=== PATIENT | male | born 1935 | race African-American/Black ===

== ENCOUNTER 2017-01-16 07:17 | Observation (INO) ==
[2017-01-16] MEDS ORDERED: NITROGLYCERIN 2% OINT 1 INCH/GM PACK TOP STA (07:43)
[2017-01-16] MEDS ORDERED: ASPIRIN 325 MG TABLET PO STA (07:43)
[2017-01-16] MEDS ORDERED: ENOXAPARIN 100 MG/ML SYRINGE SUBCUT STA (07:43)
--- NOTE | 2017-01-16 07:46 | Emergency Department Note ---
IBenton Meredith, am scribing for, and in the presence of, Sae Meneses MD 07: 43. Zaira Morales James D, MD, personally performed the services described in this documentation, ascribed by Charlotte Bhardwaj in my presence, and it is both accurate and complete 744 . Arrival - Arrival Chief Complaint: Dizziness Stated Complaint: chest pain,dizzy, weak in legs ED Nursing Triage Note: pt ambulatory to triage with c/o having dizziness and chest pain. 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 pt states when he gets up and is doing stuff around the house he gets dizzy feels like he is going to pass out with chest pain and sob. pt denies any syncopal episodes. pt denies any chest pain at this time. Mode of Arrival: Ambulatory Limitations: No Limitations Source: Patient, Old Records Reviewed, RN Notes Reviewed Time Seen by Provider: 01/16/17 07:38 - History of Present Illness HPI Narrative: Pt is an 81 y/o black male reporting to the ED with c/o intermittent episodes of lightheadedness for the past month. He will get up to do something, become very lightheaded and feels like he is going to pass out. He confirms associated chest pain, shortness of breath, nausea, vomiting, and diaphoresis. He has no pain at this time. Pt denies any blood in his bowel movements. Pt has a history of CAD, HTN, [place], HLD, and prostate cancer. Onset (ago): month(s) Consistency: intermittent Allergies/Adverse Reactions: Allergies Allergy/AdvReac Type Severity Reaction Status Date / Time No Known Allergies Allergy Verified 11/05/15 09:28 Home Medications: Home Medications Medication Instructions Recorded Confirmed Type Amiodarone HCl [Amiodarone HCl] 1 tablet PO BID 04/05/16 01/16/17 History Aspirin [Ecotrin] 81 mg PO DAILY 04/05/16 01/16/17 History Carvedilol [Carvedilol] 1 tablet PO BID 04/05/16 01/16/17 History Furosemide [Furosemide] 1 tablet PO DAILY 04/05/16 01/16/17 History Losartan [Cozaar] 50 mg PO DAILY 04/05/16 01/16/17 History Simvastatin [Simvastatin] 1 tablet PO DAILY 04/05/16 01/16/17 History Review of System - Review of System 12 point system: reviewed and no additional remarkable complaints except as stated - Review of System Constitutional: Present: as per HPI, diaphoresis, other (lightheaded) Respiratory: Present: as per HPI, other (SOB) Cardiovascular: Present: as per HPI, chest pain, syncope (near-syncope) Gastrointestinal: Present: as per HPI, nausea, vomiting. Absent: melena, hematochezia Medical,Surgical,& Family Hx - Medical History Cardio: History of: CAD, Hypertension, [place] Endocrine: History of: Dyslipidemia Genitourinary: History of: Prostate Problems (Prostate CA Radiation /Hormone [place]) - Surgical History Cardiac Surgeries: Sugical HX of: Cardiac Surgery (CABG 2003) - Family History Family History: Denies;: Additional Family History - Social History Smoking Status: Never smoker Frequency of Alcohol Use: None Type of Drug Use: None Exam Physical Examination: GENERAL: This is a well-nourished, well-developed black male in no apparent distress. VITAL SIGNS: Temperature: 97, Pulse: 53, Respirations: 17, Blood pressure: 147/ 56, O2 Saturation: 98 HEENT: Head is normocephalic and atraumatic. Pupils are equally round and reactive to light. Extraocular movement are intact. Oropharynx is benign with moist mucous membranes. NECK: Neck is soft and supple without tenderness. There are no masses. There is no lymphadenopathy. LUNGS: Lungs are clear to auscultation bilaterally. Chest rises symmetrically. There is no chest wall tenderness. CV: Heart is regular rate and rhythm without murmurs, rubs, or gallops. ABDOMEN: Abdomen is soft, non-tender to palpation. There are no abnormal masses palpated. There is no organomegaly. Bowel sounds are present and active. SKIN: Skin is warm and dry. No rash. EXTREMITIES: Patient has full range of motion without tenderness. There is no pedal edema. NEUROLOGIC: Awake, alert, and oriented x4. Cranial nerves II through XII are grossly intact. There are no motorsensory deficits. PSYCHIATRIC: Normal affect. Normal mood. Vital Signs: Vital Signs Temperature 97.0 F L 01/16/17 07:27 Pulse Rate 54 L 01/16/17 07:27 Respiratory Rate 01/16/17 07:27 Blood Pressure 147/56 01/16/17 07:27 O2 Sat by Pulse Oximetry 98 01/16/17 07:27 Course - Consultations Consultation #1: Discussed with Dr. Jaeger. Patient will be admitted to his service. Initial orders written for him. Time: 08:50 Results - Labs CBC & BMP: 01/16/17 07:53 01/16/17 07:53 Lab Results: I have reviewed the patients labs Labs: Laboratory Tests 01/16/17 07:53 WBC 2.6 L RBC 3.24 L Hgb 8.3 L Hct 27.6 L MCV 85.2 L MCH 26 L MCHC 30.1 L Plt Count 182 Lymph % (Auto) 20.5 L Baso % (Auto) 1.1 H Lymph # (Auto) 0.5 L Laboratory Tests 01/16/17 07:53 Urine pH 7.0 Ur Specific [place] 1.003 Urine Urobilinogen < 2.0 H Urine RBC <1 Laboratory Tests 01/16/17 07:53 Urine Opiates Screen Negative Ur Barbiturates Screen Negative Ur Phencyclidine Scrn Negative U Amphetamine/Methamph Negative U Benzodiazepines Scrn Negative U Cocaine Metab Screen Negative U Cannabinoids Screen Negative Laboratory Tests 01/16/17 07:53 INR 1.0 PT Patient/Control Mix 11.1 Circ Anticoag PTT 24.2 Laboratory Tests 01/16/17 07:53 Troponin I 0.054 H - EKG EKG results: interpreted by ERMD - Impressions EKG: Sinus bradycardia with occasional PVCs, left atrial enlargement, rate 55, right bundle branch block, possible anterolateral ischemia with T-wave inversion. EKG #2: Sinus bradycardia with a rate of 45, incomplete right bundle branch block, anterolateral and inferior ST segment depression and T-wave inversion consistent with ischemia. - Diagnostic Findings Procedure: Chest x-ray: image reviewed by me, report reviewed by me ( Cardiomegaly and suspected mild CHF. ) Disposition Clinical Impression: Chest pain, Lightheadedness, Essential hypertension, Elevated troponin, Anemia Case discussed with: patient Disposition: Still a Patient Condition: Guarded Time of Disposition: 08:50
[2017-01-16] MEDS ORDERED: ENOXAPARIN 100 MG/ML SYRINGE SUBCUT ONE (07:59)
[2017-01-16] MEDS ORDERED: NITROGLYCERIN 2% OINT 1 INCH/GM PACK TOP ONE (08:00)
[2017-01-16] MEDS ORDERED: ASPIRIN 325 MG TABLET ONE (08:00)
[2017-01-16 08:04] LABS: Basophils % 1.1 % (0.0-0.8); Eosinophils # 0.1 10*3/uL (0.0-0.87); Eosinophils % 1.9 % (0.00-10.9); Hematocrit 27.6 VOL% (42.0-52.0); Hemoglobin 8.3 GM/DL (14.0-18.0); Immature Granulocytes % 0.4 %; Immature Granulocytes Absolute 0.01 #; Lymphocytes # 0.5 10*3/uL (1.4-4.0); Lymphocytes % 20.5 % (21.2-54.2); Mean Corpuscular HGB Conc 30.1 GM/DL (32-36); Mean Corpuscular Hemoglobin 26 PG (27-34); Mean Corpuscular Volume 85.2 FL (87-102); Monocytes # 0.2 10*3/uL (0.11-0.8); Monocytes % 9.1 % (1.7-12.7); Neutrophils # 1.8 10*3/uL (1.4-7.4); Platelet Count 182 T/CUMM (130-400); Red Blood Count 3.24 MC/CUMM (3.8-5.5); Red Cell Distribution Width 15.9 % (9.3-17.3); White Blood Count 2.6 T/CUMM (4-12)
[2017-01-16 08:05] LABS: Apearance,Urine CLEAR (Clear); Bilirubin,Urine Negative (Negative); Blood, Urine Negative (Negative); Glucose,Urine (UA) Negative (Negative); Ketones,Urine Negative (Negative); Nitrite,Urine Negative (Negative); Protein,Urine Negative; RBC,Urine <1 /HPF (0-4); Urine Color Colorless (Yellow); Urine Specific Gravity 1.003 (1.001-1.035); Urine Urobilinogen < 2.0 EU/DL (0.2-1.0)
[2017-01-16 08:12] LABS: Barbiturates Screen,Urine Negative (Negative); Benzodiazepines Screen,Urine Negative (Negative); Cannabinoid Screen,Urine Negative (Negative); Opiate Screen,Urine Negative (Negative); Phencyclidine Screen,Urine Negative (Negative)
[2017-01-16 08:13] LABS: PT Patient Result 11.1 SECS; Partial Thromboplastin Time 24.2 SECS (0-40)
--- NOTE | 2017-01-16 08:23 | XRay Report ---
History: Chest pain Date: 01/16/2017 at 8:09 AM Study: Chest x-ray PA and lateral Comparison exam: Chest x-ray August 09, 2014 from outside institution There is cardiomegaly. The pulmonary vasculature is slightly prominent. There is mild azygous vein distention. There is no mediastinal mass. The patient is status post prior median sternotomy. There is shallow inspiration with some bronchovascular crowding in the lung bases. There is no lola pneumonia. Shallow inspiration makes it difficult to exclude some early interstitial edema. There is no significant pleural effusion layering in the posterior costophrenic angles. There is mild thoracic spondylosis. There is an old healed mid shaft fracture of the right clavicle Impression: Cardiomegaly and suspected mild CHF PROCEDURE INTERPRETED AT [facility] DEPARTMENT OF RADIOLOGY Final Report Signed by: Dr. Jacque Hodge
[2017-01-16 08:36] LABS: Alanine Aminotransferase 45 U/L (16-61); Albumin 3.7 G/DL (3.4-5.0); Alkaline Phosphatase 71 U/L (45-117); Aspartate Amino Transferase 51 U/L (0-37); Bilirubin,Total < 0.39 MG/DL (0.2-1.0); Blood Urea Nitrogen 17 MG/DL (7-18); Calcium 8.7 MG/DL (8.5-10.1); Glucose 106 MG/DL (74-106); Osmolality,Calculated 291.6 MOS/KG (273-304); Potassium 3.8 MMOL/L (3.5-5.1); Sodium 146 MMOL/L (136-145); Total Protein 6.7 G/DL (6.4-8.3)
[2017-01-16 09:15] LABS: % Iron Saturation 5.5 % (18-50)
--- NOTE | 2017-01-16 09:26 | Hospitalist History & Physical ---
History of Present Illness History of present illness: Mr. Stokes is a 81 year old male Home Medications Medication Instructions Recorded Confirmed Type Amiodarone HCl [Amiodarone HCl] 1 tablet PO BID 04/05/16 01/16/17 History Aspirin [Ecotrin] 81 mg PO DAILY 04/05/16 01/16/17 History Carvedilol [Carvedilol] 1 tablet PO BID 04/05/16 01/16/17 History Furosemide [Furosemide] 1 tablet PO DAILY 04/05/16 01/16/17 History Losartan [Cozaar] 50 mg PO DAILY 04/05/16 01/16/17 History Simvastatin [Simvastatin] 1 tablet PO DAILY 04/05/16 01/16/17 History Allergies Allergy/AdvReac Type Severity Reaction Status Date / Time No Known Allergies Allergy Verified 11/05/15 09:28 Medical,Surgical,& Family Hx - Medical History Cardio: History of: CAD, Hypertension, [place] Endocrine: History of: Dyslipidemia Genitourinary: History of: Prostate Problems (Prostate CA Radiation /Hormone [place]) - Surgical History Cardiac Surgeries: Sugical HX of: Cardiac Surgery (CABG 2003) - Family History Family History: Denies;: Additional Family History - Social History Smoking Status: Never smoker Frequency of Alcohol Use: None Type of Drug Use: None Exam - Constitutional Vitals: Period Temp Pulse Resp BP Sys/Franco Pulse Ox Last 24 Hr 97.0 F-97.0 F 53-54 - 147-147/56-56 98 Results - Labs CBC & BMP: 01/16/17 07:53 01/16/17 07:53
[2017-01-16 10:05] LABS: Folate 10.3 NG/ML (5.4-24.0)
--- NOTE | 2017-01-16 11:01 | EKG Report ---
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
[2017-01-16] MEDS ORDERED: ONDANSETRON 4 MG/2 ML VIAL IV PRN (13:28)
[2017-01-16] MEDS ORDERED: ACETAMINOPHEN 325 MG TABLET PO PRN (13:28)
[2017-01-16] MEDS ORDERED: SODIUM CHLORIDE 0.9% 1,000 ML IV SCH (13:28)
[2017-01-16] MEDS ORDERED: PNEUMOCOCCAL VACCINE (13 VALENT) 0.5 ML SYRINGE IM ONE (13:55)
--- NOTE | 2017-01-16 13:55 | EKG Report ---
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
[2017-01-16] MEDS: ENOXAPARIN 40 MG/0.4 ML SYRINGE SUBCUT SCH (15:13)
[2017-01-16] MEDS ORDERED: NITROGLYCERIN SL 0.4 MG TABLET SL PRN (15:49)
--- NOTE | 2017-01-16 15:55 | Family Practice History&Phys ---
Assessment and Plan (1) Ischemic cardiomyopathy Status: Acute Assessment and plan: 01/16/2017: Chest x-ray showed mild evidence of congestive heart failure. 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 Alex Craft. I will ask him to see him as well. Patient's troponin is very slightly elevated which could be related to his cardiomyopathy. Current Visit: Yes History of Present Illness Chief complaint: Chest pain History of present illness: Mr. Stokes is a 81 year old male Patient's 81-year-old black male presents emergency room day of admission with substernal chest pain. Patient states is blowing off and on for the last 3 or 4 days and seemed been getting a bit worse with each episode. Patient states the pain was a dull ache in the right chest and heard up into his neck. He tells me this pain is similar to that he experienced before his bypass surgery in 2003. He denies any associated nausea, vomiting or diaphoresis. He did feel a bit short of breath. Patient states he noticed it again today when he was bent over and doing something to his truck. Patient's states that these had increasing dyspnea with exertion of S1 going on for months. He did have a history of another left heart catheterization in 2013 that showed widely patent grafts and good runoff in the pilot [place] arteries. Patient states he is pain -free at present. He does have a history of ischemic cardiomyopathy with EF 25% . Home Medications Medication Instructions Recorded Confirmed Type Amiodarone HCl [Amiodarone HCl] 1 tablet PO BID 04/05/16 01/16/17 History Aspirin [Ecotrin] 81 mg PO DAILY 04/05/16 01/16/17 History Carvedilol [Carvedilol] 1 tablet PO BID 04/05/16 01/16/17 History Furosemide [Furosemide] 1 tablet PO DAILY 04/05/16 01/16/17 History Losartan [Cozaar] 50 mg PO DAILY 04/05/16 01/16/17 History Simvastatin [Simvastatin] 1 tablet PO DAILY 04/05/16 01/16/17 History Allergies Allergy/AdvReac Type Severity Reaction Status Date / Time No Known Allergies Allergy Verified 11/05/15 09:28 - Constitutional Constitutional: Present: weakness. Absent: chills, fever(s) - EENT Eyes: Absent: blurry vision, loss of vision Ears: Absent: decreased hearing, ear pain Nose, mouth and throat: Absent: dysphagia, nasal congestion, sinus pressure, sore throat, throat swelling - Cardiovascular Cardiovascular: Present: chest pain at rest, dyspnea on exertion. Absent: orthopnea, palpitations, PND - Respiratory Respiratory: Present: dyspnea on exertion. Absent: cough, wheezing - Gastrointestinal Gastrointestinal: Absent: abdominal pain, diarrhea, dyspepsia, dysphagia, hematochezia, melena, nausea, vomiting - Genitourinary Genitourinary: Absent: dysuria, urinary frequency, urinary incontinence - Musculoskeletal Musculoskeletal: Absent: arthralgias, back pain - Neurological Neurological: Absent: confusion, focal weakness, numbness, paresthesias - Psychiatric Psychiatric: Absent: anxiety, confusion, depression - Endocrine Endocrine: Present: fatigue. Absent: polydipsia, polyphagia - Hematologic/Lymphatic Hematologic/Lymphatic: Absent: easy bleeding, easy bruising Medical,Surgical,& Family Hx - Medical History Cardio: History of: CAD, Hypertension, [place] HEENT: History of: HEENT Problems (seasonal allergies) Endocrine: History of: Dyslipidemia Genitourinary: History of: Prostate Problems (Prostate CA Radiation /Hormone [place]) Gastrointestinal: History of: GERD - Surgical History Cardiac Surgeries: Sugical HX of: Cardiac Surgery (CABG 2003) HEENT Surgeries: Patient denies: Eye Surgery, Tonsilectomy & Adenoidectomy Abdominal Surgeries: Surgical HX of: Colonoscopy - Family History Family History: Reports;: Family Diabetes (mother), Family Heart Disease (father ) Denies;: Additional Family History - Social History Smoking Status: Former smoker Frequency of Alcohol Use: None Type of Drug Use: None Exam - Constitutional Vitals: Period Temp Pulse Resp BP Sys/Franco Pulse Ox Last 24 Hr 98.0 F 54-68 15-16 160-173/64-94 97-100 Exam: General: Objective patient is a well-developed black male in no acute distress. Patient states he is comfortable and not having any chest discomfort at present. Patient is able to give a good history. HEENT: Pupils equal and reactive to light. Patent nares and airway Neck: No meningismus, adenopathy, thyromegaly. There are no auscultated carotid bruits. Cardiovascular: Regular rhythm. No murmurs or gallops Chest: Clear to auscultation without rales rhonchi wheezes. Abdomen: Soft nontender to palpation No masses, rebound, guarding or tenderness. Neuro: Cranial nerves intact and DTRs and strength symmetric in all extremities. Dermatologic: No evidence of abnormal lesions or masses. Musculoskeletal: There is no joint swelling or tenderness or deformity. Extremities: There is no calf swelling or tenderness Results - Labs CBC & BMP: 01/16/17 07:53 01/16/17 07:53 Lab Results: I have reviewed the past 24 hour labs - Impressions Right bundle branch block, T-wave inversions in the lateral precordial leads. - Diagnostic Findings Procedure: Chest x-ray: report reviewed by me (Mild CHF.)
[2017-01-16 17:01] LABS: % Iron Saturation 4.3 % (18-50); Ferritin 7.1 ng/ml (26-388)
[2017-01-16 17:08] LABS: Folate 14.2 NG/ML (5.4-24.0)
--- NOTE | 2017-01-16 17:28 | Cardiology Consult Note ---
<Hilda Schultz E - Last Filed: 01/16/17 16:59> Assessment and Plan - Time spent with patient Time spent with patient: Greater than 30 minutes (1) CAD (coronary artery disease) Status: Chronic Assessment and plan: See plan of care Current Visit: Yes (2) Ischemic cardiomyopathy Status: Chronic Assessment and plan: See plan of care Current Visit: Yes (3) High risk medication use Status: Chronic Assessment and plan: See plan of care Current Visit: Yes (4) Chest pain Status: Acute Assessment and plan: See plan of care Current Visit: Yes (5) Essential hypertension Status: Chronic Assessment and plan: See plan of care Current Visit: Yes (6) Elevated troponin Status: Acute Assessment and plan: See plan of care Current Visit: Yes (7) Anemia Status: Chronic Assessment and plan: See plan of care Current Visit: Yes (8) Ischemic cardiomyopathy Status: Chronic Assessment and plan: See plan of care Current Visit: Yes History of Present Illness - Data of Consult Patient: known to practice within the last 3 years Consult date: 01/16/17 Requesting Physician: Noe Jaeger - Consult Narrative Reason for consult: Chest pain, known coronary artery disease History of present illness: Patient is being seen in the ICU Mr. Stokes is a 81 year old male routinely followed by Dr. Craft. He was last seen in his cardiology clinic in November 30, 2016. Risk factors include: Advanced stage, known coronary artery disease (status post CABG 3), hypertension, dyslipidemia. History of V. tach after non-Q-wave DC July. He currently takes amiodarone. Patient presented to the emergency department at [facility] with complaints of substernal chest pain. Patient reported his chest pain, described as squeezing and heaviness in the center of his chest) has been occurring for approximately 1 month. However, this has been worsening in intensity and occurring more frequently over the past week. There is no radiation to the discomfort but has caused nausea, diaphoresis and shortness of breath. Exertion re-creates the discomfort and rest relieves the discomfort. He rates the discomfort as 7 on a scale of 1-10. He is currently chest pain- free. Troponin is noted to be 0.054. Abnormal reveals a right bundle branch block. In comparison to previous EKG from November 30, 2016 there seems to be some changes in V1 and V2. Last heart catheterization took place 08/11/[address] Craft with the following : CONCLUSIONS: 1. INCREASED LVEDP 22MMHG 2. Severe global hypokinesis with EF 25% 3. No mitral regurgitation 4. No aortic valve gradient 5. Left main trunk patent 6. LAD is 100% proximal after first septal direct chill caster 7. First diagonal is 100% occlusion 8. Circumflex has severe proximal disease and proximal OM1 9. Dominant right coronary artery with severe ostial and proximal right coronary artery disease 10. Saphenous vein graft to OM branch is widely patent with good runoff 11. Saphenous vein graft to right coronary artery is widely patent with good runoff 12. RESENDIZ to LAD is widely patent. The distal LAD wraps around the apex and has mild irregularities only ASSESSMENT/PLAN: 1. CHEST PAIN - chest pain is concerning for angina. Continue aspirin, beta blockade, JUAN inhibitor, nitrates, lipid-lowering agent. She has received an milligrams subcu Lovenox. 2. KNOWN CAD S/P CABG X 3 -see above 3. HYPERTENSION -usually well controlled. We will continue with beta- blockade and JUAN inhibitor. 4. DYSLIPIDEMIA -continue lipid-lowering agent. Fasting lipid profile in the morning 5. ICM - EF 25%. Echocardiogram 6. RBBB -abnormal EKG. 7. HIGH RISK MED - Amiodorone 8. FLATUS - start simethicone CC: Noe Jaeger MD - Home Medications and Allergies Home Medications: Home Medications Medication Instructions Recorded Confirmed Type Amiodarone HCl [Amiodarone HCl] 1 tablet PO BID 04/05/16 01/16/17 History Aspirin [Ecotrin] 81 mg PO DAILY 04/05/16 01/16/17 History Carvedilol [Carvedilol] 1 tablet PO BID 04/05/16 01/16/17 History Furosemide [Furosemide] 1 tablet PO DAILY 04/05/16 01/16/17 History Losartan [Cozaar] 50 mg PO DAILY 04/05/16 01/16/17 History Simvastatin [Simvastatin] 1 tablet PO DAILY 04/05/16 01/16/17 History Allergies/Adverse Reactions: Allergies Allergy/AdvReac Type Severity Reaction Status Date / Time No Known Allergies Allergy Verified 11/05/15 09:28 Review of systems: REVIEW OF SYSTEMS: - Constitutional Constitutional: Present: Fatigue. Absent: syncope, anorexia, night sweats - EENT Eyes: Absent: blurry vision, loss of vision, diplopia Ears: Absent: decreased hearing, ear pain, ear discharge - Cardiovascular Cardiovascular: Present: chest pain with exertion, dyspnea on exertion, denies edema or palpitations. Absent: chest pain with deep breath, claudication, - Respiratory Respiratory: Present: GLASER, denies cough. Absent: wheezing, hemoptysis, change in phlegm color - Gastrointestinal Gastrointestinal: Present: Frequent gas with occasional incontinence of bilateral absent: abdominal pain, hematemesis, hematochezia, melena, change in bowel habits, nausea - Genitourinary Genitourinary: Absent: difficulty urinating, dysuria, urinary hesitancy, flank pain - Musculoskeletal Musculoskeletal: Present: back pain Absent: joint swelling, muscle cramps, muscle weakness - Neurological Neurological: Present: normal gait without frequent falls. Absent: dizziness, hemiparesis - Psychiatric Psychiatric: Absent: anxiety, depression, difficulty concentrating - Endocrine Endocrine: Present: fatigue. Absent: cold intolerance, heat intolerance, polyuria, polyphagia, polydipsia - Hematologic/Lymphatic Hematologic/Lymphatic: Present: easy bruising. Absent: easy bleeding, easy bruisability -Integumentary Integumentary: Absent: lesions, rashes, skin breakdown Medical,Surgical,& Family Hx - Medical History Cardio: History of: CAD, Hypertension, DC HEENT: History of: HEENT Problems (seasonal allergies) Endocrine: History of: Dyslipidemia Genitourinary: History of: Prostate Problems (Prostate CA Radiation /Hormone [place]) Gastrointestinal: History of: GERD - Surgical History Cardiac Surgeries: Sugical HX of: Cardiac Surgery (CABG 2003) HEENT Surgeries: Patient denies: Eye Surgery, Tonsilectomy & Adenoidectomy Abdominal Surgeries: Surgical HX of: Colonoscopy - Family History Family History: Reports;: Family Diabetes (mother), Family Heart Disease (father ) Denies;: Additional Family History - Social History Smoking Status: Former smoker Have you smoked in the last 12 months: No Frequency of Alcohol Use: None Type of Drug Use: None Marital Status: Lives With:: Spouse Functional capacity: independent ambulation Physical Examination Vital Signs Temp Pulse Resp BP Pulse Ox 97.0 F L 53 L 17 147/56 98 01/16/17 07:27 01/16/17 07:27 01/16/17 07:27 01/16/17 07:27 01/16/17 07:27 General: [Appears well with no apparent distress.] [Pleasant and cooperative. ] [Appears comfortable.] HEENT: [PERRL, normocephalic, atraumatic. Mucous membranes moist. No jaundice noted. Conjunctiva moist and clear, sclerae anicteric] Neck: No JVD/HJR, no thyromegaly or lymphadenopathy noted. No carotid bruit appreciated Cardiac: [Regular rate and rhythm.] [No murmur rub or gallop.] Lungs: [Clear to auscultation without accessory muscle use to assist the respiratory pattern.] Not requiring oxygen at this time Abdomen: Soft, bowel sounds normoactive. Nontender and nondistended. No abdominal bruit or thrill noted. No masses noted. Musculoskeletal: No fluid collection. Decreased range of motion is noted. Extremities: No clubbing, cyanosis noted. [ No edema noted.] Upper extremity pulses 2+. Lower extremity pulses 2+. Capillary refill less than 3 seconds. Skin: No unusual lesions or rashes. No skin breakdown appreciated. Neuro: Awake, alert and oriented 3. Moves all extremities well without hemiparesis or paralysis. No essential tremor is appreciated. Result/EKG - Labs CBC & BMP: 01/16/17 07:53 01/16/17 07:53 Lab Results: I have reviewed the past 24 hour labs Labs: Laboratory Results - last 24 hr 01/16/17 01/16/17 01/16/17 11:59 14:38 16:02 Troponin I 0.045 0.049 H B-Natriuretic Peptide Blood Type B POSITIVE Antibody Screen Negative 01/16/17 16:02 Troponin I B-Natriuretic Peptide 811 H Blood Type Antibody Screen - Diagnostic Findings Procedure: Chest x-ray: report reviewed by oh - EKG EKG results: interpreted by oh EKG shows: sinus rhythm <Alex Craft - Last Filed: 01/16/17 18:49> History of Present Illness - Consult Narrative History of present illness: Cardiology addendum Patient examined chart reviewed and I discussed with the patient and his Rekha. Increased exertional dyspnea and easy fatigability. 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 Chest x-ray shows cardiomegaly with CHF. BNP level 811. Trivial troponin 0.054 Iron deficiency anemia chronic. Serum iron 24, TIBC 434, ferritin level 7.1 Status post three-vessel CABG December 26, 2004. Status post non-Q-wave DC with V. tach August 01, 2014. Cath at that time showed ejection fraction 25% with patent RESENDIZ graft to LAD, patent vein graft to the obtuse marginal branch and patent vein graft distal right coronary. Infarct vessel cannot be determined. History of prostate cancer treated with radiation and subsequent radiation proctitis Plan 40 mg IV Lasix twice daily Echo Doppler Duo nebs Increase Cozaar 50 mg twice daily Lovenox Heart cath when CHF improves. CC: Noe Jaeger MD Physical Examination Vital Signs Temp Pulse Resp BP Pulse Ox 97.0 F L 53 L 17 147/56 98 01/16/17 07:27 01/16/17 07:27 01/16/17 07:27 01/16/17 07:27 01/16/17 07:27 Result/EKG - Labs CBC & BMP: 01/16/17 07:53 01/16/17 07:53 Labs: Laboratory Results - last 24 hr 01/16/17 01/16/17 01/16/17 11:59 14:38 16:02 Iron 17 L TIBC 400 % Saturation 4.3 L Ferritin 7.1 L Troponin I 0.045 0.049 H B-Natriuretic Peptide Vitamin B12 Folate Blood Type Antibody Screen 01/16/17 01/16/17 01/16/17 16:02 16:02 16:02 Iron TIBC % Saturation Ferritin Troponin I B-Natriuretic Peptide 811 H Vitamin B12 303 Folate 14.2 Blood Type B POSITIVE Antibody Screen Negative
[2017-01-16] MEDS: SIMETHICONE CHEW 125 MG TABLET PO SCH ×2 (17:51→22:43)
[2017-01-16] MEDS: AMIODARONE 200 MG TABLET PO SCH (22:41)
[2017-01-16] MEDS: DOCUSATE SODIUM 100 MG CAPSULE PO SCH (22:41)
[2017-01-16] MEDS: CARVEDILOL 6.25 MG TABLET PO SCH (22:42)
[2017-01-17 03:27] LABS: Basophils % 0.6 % (0.0-0.8); Eosinophils # 0.1 10*3/uL (0.0-0.87); Eosinophils % 2.1 % (0.00-10.9); Hemoglobin 7.7 GM/DL (14.0-18.0); Immature Granulocytes % 0.3 %; Immature Granulocytes Absolute 0.01 #; Lymphocytes # 0.9 10*3/uL (1.4-4.0); Mean Corpuscular HGB Conc 29.6 GM/DL (32-36); Mean Corpuscular Hemoglobin 25 PG (27-34); Mean Corpuscular Volume 84.1 FL (87-102); Mean Platelet Volume 10.6 FL (9.6-12.0); Monocytes # 0.3 10*3/uL (0.11-0.8); Monocytes % 9.1 % (1.7-12.7); Neutrophils # 2.1 10*3/uL (1.4-7.4); Neutrophils % 61.9 % (38.7-73.9); Platelet Count 173 T/CUMM (130-400); Red Blood Count 3.09 MC/CUMM (3.8-5.5); Red Cell Distribution Width 15.9 % (9.3-17.3); White Blood Count 3.4 T/CUMM (4-12)
--- NOTE | 2017-01-17 06:06 | EKG Report ---
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
--- NOTE | 2017-01-17 07:11 | Cardiology Progress Note ---
Cardiology - PN: Subj Interval history: Cardiology note 81-year-old man with ischemic cardiomyopathy admitted with recurrent heart failure and chest pain. And dyspnea. Breathing better after IV Lasix and duo nebs Blood pressure 146/82 O2 sat 97% on room air telemetry shows sinus rhythm in the 50s-60s. No ventricular ectopy Decreased breath sounds few crackles in the bases Regular rhythm no murmur Abdomen soft benign No leg edema Lab data today BNP 811 Hemoglobin 7.7 hematocrit 26.0 Impression Ischemic cardiomyopathy Recurrent CHF Progressive dyspnea Chest pain Status post three-vessel CABG 2003 Plan increase Cozaar 50 mg twice daily Continue Lasix 40 mg IV twice daily duo nebs Echo Doppler today Repeat BMP and CBC in a.m. Heart cath tomorrow Exam (Progress Note) - Constitutional Vitals: Period Temp Pulse Resp BP Sys/Franco Pulse Ox Last 24 Hr 98.0 F-98.4 F 54-68 15-22 152-173/64-94 96-100 Result/EKG - Labs CBC & BMP: 01/17/17 03:08 01/16/17 07:53 Labs: Laboratory Results - last 24 hr 01/16/17 01/16/17 01/16/17 11:59 14:38 16:02 WBC RBC Hgb Hct MCV MCH MCHC RDW Plt Count MPV Neut % (Auto) Lymph % (Auto) [place] % (Auto) Eos % (Auto) Baso % (Auto) Neut # (Auto) Lymph # (Auto) [place] # (Auto) Eos # (Auto) Baso # (Auto) Immature Gran % Nucleated RBC % Immature Gran # Nucleated RBCs # Iron 17 L TIBC 400 % Saturation 4.3 L Ferritin 7.1 L Troponin I 0.045 0.049 H B-Natriuretic Peptide Vitamin B12 Folate Blood Type Antibody Screen 01/16/17 01/16/17 01/16/17 16:02 16:02 16:02 WBC RBC Hgb Hct MCV MCH MCHC RDW Plt Count MPV Neut % (Auto) Lymph % (Auto) [place] % (Auto) Eos % (Auto) Baso % (Auto) Neut # (Auto) Lymph # (Auto) [place] # (Auto) Eos # (Auto) Baso # (Auto) Immature Gran % Nucleated RBC % Immature Gran # Nucleated RBCs # Iron TIBC % Saturation Ferritin Troponin I B-Natriuretic Peptide 811 H Vitamin B12 303 Folate 14.2 Blood Type B POSITIVE Antibody Screen Negative 01/17/17 03:08 WBC 3.4 L D RBC 3.09 L Hgb 7.7 L Hct 26.0 L MCV 84.1 L MCH 25 L MCHC 29.6 L RDW 15.9 Plt Count 173 MPV 10.6 Neut % (Auto) 61.9 Lymph % (Auto) 26.0 [place] % (Auto) 9.1 Eos % (Auto) 2.1 Baso % (Auto) 0.6 Neut # (Auto) 2.1 Lymph # (Auto) 0.9 L [place] # (Auto) 0.3 Eos # (Auto) 0.1 Baso # (Auto) 0.0 Immature Gran % 0.3 Nucleated RBC % 0.0 Immature Gran # 0.01 Nucleated RBCs # 0.00 Iron TIBC % Saturation Ferritin Troponin I B-Natriuretic Peptide Vitamin B12 Folate Blood Type Antibody Screen
[2017-01-17] MEDS ORDERED: ALBUTEROL/IPRATROPIUM 3 ML NEB RESP TX PRN (07:16)
--- NOTE | 2017-01-17 07:26 | Family Practice Progress Note ---
Family Practice - PN: Subj Interval history: Patient states he had a good night and has not had any further chest pain. His repeat hematocrit this morning was 26%. He is noted to have low iron and low ferritin level. I am going to restart his iron supplement. Is scheduled for left heart catheterization in the morning. He states he slept well last night Exam (Progress Note) - Constitutional Vitals: Period Temp Pulse Resp BP Sys/Franco Pulse Ox Last 24 Hr 98.0 F-98.4 F 54-68 15-22 152-173/64-94 96-100 Exam: Objectively well-developed black male no acute distress. He is lying comfortably in bed and has no dyspnea. He is able to give an excellent history. Cardiovascular: Heart rate regular I hear no murmurs or gallops. Respiratory: Lungs clear to auscultation bilaterally. Abdomen: There is no localized, rebound or guarding tenderness. Extremities: There is no calf swelling or tenderness Results - Labs CBC & BMP: 01/17/17 03:08 01/16/17 07:53 Lab Results: I have reviewed the past 24 hour labs Assessment and Plan (1) Ischemic cardiomyopathy Status: Chronic Assessment and plan: 01/16/2017: Chest x-ray showed mild evidence of congestive heart failure. He certainly not symptomatic for that at this point in time 01/17/2017: Patient is clinically improved. Patient scheduled for left heart cath in the morning. 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 Alex Craft. I will ask him to see him as well. Patient's troponin is very slightly elevated which could be related to his cardiomyopathy. 01/17/2017: Patient for left heart cath in the morning. Current Visit: Yes (3) Iron deficiency anemia Status: Acute Assessment and plan: 01/17/2017: Patient's stool was negative for occult blood. Will restart iron supplement Current Visit: Yes
[2017-01-17] MEDS: ASPIRIN EC 81 MG TABLET PO SCH (08:30)
[2017-01-17] MEDS: FERROUS SULFATE 325 MG TABLET PO SCH ×2 (08:30→20:30)
[2017-01-17] MEDS: SIMVASTATIN 40 MG TABLET PO SCH (08:31)
[2017-01-17] MEDS: POTASSIUM CHLORIDE 20 MEQ TABLET PO SCH (08:31)
[2017-01-17] MEDS: AMIODARONE 200 MG TABLET PO SCH ×2 (08:31→20:30)
[2017-01-17] MEDS: PANTOPRAZOLE 40 MG TABLET PO SCH (08:32)
[2017-01-17] MEDS: SIMETHICONE CHEW 125 MG TABLET PO SCH ×4 (08:32→20:30)
[2017-01-17] MEDS: CARVEDILOL 6.25 MG TABLET PO SCH ×2 (08:32→20:30)
[2017-01-17] MEDS: DOCUSATE SODIUM 100 MG CAPSULE PO SCH ×2 (08:32→20:30)
[2017-01-17] MEDS: FUROSEMIDE 40 MG/4 ML VIAL IV SCH ×2 (08:33→16:44)
[2017-01-17] MEDS: LOSARTAN 50 MG TABLET PO SCH ×2 (08:38→20:30)
[2017-01-17] MEDS ORDERED: LOSARTAN 50 MG TABLET PO SCH (09:00)
[2017-01-17] MEDS ORDERED: FUROSEMIDE 40 MG TABLET PO SCH (09:00)
[2017-01-17] MEDS: ALBUTEROL/IPRATROPIUM 3 ML NEB RESP TX SCH ×2 (12:45→19:29)
[2017-01-17] MEDS: ENOXAPARIN 40 MG/0.4 ML SYRINGE SUBCUT SCH (14:35)
--- NOTE | 2017-01-17 18:16 | ECHO Report ---
Stokes Prabhjot Exam Date: 01/17/2017 09:06 Referring Physician: Technologist: Samantha Chao RDCS Age: 81 Ht (in): Wt (lb): Gender: M Exam Location: [facility] Echo Indications: Chest pain, unspecified, Dyspnea, unspecified, Ischemic cardiomyopathy, Essential (primary) hypertension, Abnormal electrocardiogram [ECG] [EKG], CAD with previous CABG, High risk medicine use, Elevated troponin, Anemia BP: / HR: Rhythm: Technical Quality: IMPRESSIONS Grade II/IV diastolic dysfunction, moderately elevated filling pressures. Grade II/IV diastolic dysfunction, moderately elevated filling pressures. The right ventricle is normal in size and function. The right atrium is mildly enlarged. The left atrium is mildly enlarged. Thickened mitral valve. Trace mitral valve regurgitation. Aortic valve sclerosis. Trace aortic valve regurgitation. Severe tricuspid valve regurgitation. PAP60 mmHg. Trace pulmonary valve regurgitation. Normal pericardium without effusion. Normal ascending aorta dimension. MEASUREMENTS (Male / Female) Normal Values 2D ECHO LV Diastolic Diameter PLAX 4.7 cm 4.2 - 5.9 / 3.9 - 5.3 cm LV Systolic Diameter PLAX 3.8 cm LV Fractional Shortening PLAX 18.4 % IVS Diastolic Thickness 1.3 cm 0.6 - 1.0 / 0.6 - 0.9 cm LVPW Diastolic Thickness 1.3 cm 0.6 - 1.0 / 0.6 - 0.9 cm RV Internal Dim ED PLAX 3.5 cm Aortic Root Diameter 3.4 cm LA Systolic Diameter LX 4.7 cm 3.0 - 4.0 / 2.7 - 3.8 cm DOPPLER TR Peak Velocity 353.0 cm/s TR Peak Gradient 49.8 mmHg FINDINGS Left Ventricle EF 25 %, severe global hypokinesis. Grade II/IV diastolic dysfunction, moderately elevated filling pressures. Right Ventricle The right ventricle is normal in size and function. Right Atrium The right atrium is mildly enlarged. Left Atrium The left atrium is mildly enlarged. Mitral Valve Thickened mitral valve. Trace mitral valve regurgitation. Aortic Valve Aortic valve sclerosis. Trace aortic valve regurgitation. Tricuspid Valve Morphologically normal tricuspid valve. Severe tricuspid valve regurgitation. PAP60 mmHg. Pulmonic Valve Morphologically normal pulmonic valve. Trace pulmonary valve regurgitation. Pericardium Normal pericardium without effusion. Aorta Normal ascending aorta dimension. Joseph Craft (Electronically Signed) Final Date: 17 January 2017 18:15
[2017-01-18] MEDS: ALBUTEROL/IPRATROPIUM 3 ML NEB RESP TX SCH ×4 (00:52→19:48)
[2017-01-18 04:34] LABS: Basophils % 0.7 % (0.0-0.8); Eosinophils # 0.1 10*3/uL (0.0-0.87); Eosinophils % 1.7 % (0.00-10.9); Hematocrit 27.4 VOL% (42.0-52.0); Hemoglobin 8.4 GM/DL (14.0-18.0); Immature Granulocytes % 0.3 %; Immature Granulocytes Absolute 0.01 #; Lymphocytes # 0.8 10*3/uL (1.4-4.0); Lymphocytes % 27.6 % (21.2-54.2); Mean Corpuscular HGB Conc 30.7 GM/DL (32-36); Mean Corpuscular Hemoglobin 25 PG (27-34); Mean Corpuscular Volume 81.3 FL (87-102); Mean Platelet Volume 11.5 FL (9.6-12.0); Monocytes # 0.3 10*3/uL (0.11-0.8); Monocytes % 9.1 % (1.7-12.7); Neutrophils # 1.8 10*3/uL (1.4-7.4); Neutrophils % 60.6 % (38.7-73.9); Platelet Count 197 T/CUMM (130-400); Red Blood Count 3.37 MC/CUMM (3.8-5.5); Red Cell Distribution Width 15.8 % (9.3-17.3)
[2017-01-18 05:11] LABS: Calcium 8.9 MG/DL (8.5-10.1); Osmolality,Calculated 286.8 MOS/KG (273-304); Potassium 4.1 MMOL/L (3.5-5.1)
--- NOTE | 2017-01-18 07:12 | Cardiology Progress Note ---
Cardiology - PN: Subj Interval history: Cardiology note 81-year-old man admitted with chest pain and congestive heart failure. Has been diuresed and he feels better. Telemetry shows sinus rhythm rare PVC O2 sat 97 Decreased breath sounds but fairly clear Regular rhythm no murmur or gallop Abdomen soft benign Femoral pulses 2+ without bruit Lab data today Hemoglobin 8.4 hematocrit 27.4 Sodium 144 potassium 4.1 chloride 102 CO2 30 BUN 16 creatinine 1.20 glucose 95 Impressions 81-year-old man with ischemic cardia myopathy EF 25% CHF and atypical pain Last cardiac cath August 11, 2014 showed patent RESENDIZ graft to LAD, patent vein graft OM, patent vein graft distal right coronary with EF 25% Chronic hypertension History of prostate cancer History radiation proctitis Plan Cardiac cath today. Risks benefits reviewed with patient and his Rekha. All questions answered. He agrees to proceed. Begin normal saline hydration Exam (Progress Note) - Constitutional Vitals: Period Temp Pulse Resp BP Sys/Franco Pulse Ox Last 24 Hr 96.9 F-98.6 F 49-62 16-24 135-147/55-61 96-100 Result/EKG - Labs CBC & BMP: 01/18/17 03:28 01/18/17 03:28 Labs: Laboratory Results - last 24 hr 01/18/17 01/18/17 03:28 03:28 WBC 3.0 L RBC 3.37 L Hgb 8.4 L Hct 27.4 L MCV 81.3 L MCH 25 L MCHC 30.7 L RDW 15.8 Plt Count 197 MPV 11.5 Neut % (Auto) 60.6 Lymph % (Auto) 27.6 [place] % (Auto) 9.1 Eos % (Auto) 1.7 Baso % (Auto) 0.7 Neut # (Auto) 1.8 Lymph # (Auto) 0.8 L [place] # (Auto) 0.3 Eos # (Auto) 0.1 Baso # (Auto) 0.0 Immature Gran % 0.3 Nucleated RBC % 0.0 Immature Gran # 0.01 Nucleated RBCs # 0.00 Sodium 144 Potassium 4.1 Chloride 102 Carbon Dioxide 30 Anion Gap 16.1 H BUN 16 Creatinine 1.20 GFR Calculation 73 BUN/Creatinine Ratio 13.00 Glucose 95 Calculated Osmolality 286.8 Calcium 8.9
[2017-01-18] MEDS ORDERED: MAGNESIUM SULF RIDER 2 GM in PREMIX 1 EACH IV PRN ×2 (07:26→07:39)
[2017-01-18] MEDS ORDERED: POTASSIUM CHLORIDE RIDER 10 MEQ in PREMIX 1 EACH IV PRN ×2 (07:26→07:39)
--- NOTE | 2017-01-18 07:39 | Event Note ---
81-year-old man who Dr. Craft is asking us to see and evaluate for cardiac catheterization. The patient's had prior coronary bypass surgery with RESENDIZ to LAD, SVG to obtuse marginal branch and SVG to RCA. He had a cardiac catheterization 2013 and grafts were patent. His ejection fraction was 25% and remains low. We are asked to see the patient now for cardiac catheterization because of exertional dyspnea and chest discomfort. I discussed cardiac catheterization with possible PCI with the patient and his reviewed indications the procedure as well as how would be carried out and the risk. I discussed cardiac catheterization and percutaneous coronary intervention with the patient and available family. I reviewed with them the indications for the procedure and the basis of how the procedure would be carried out. I also reviewed with them the risk of the procedure which include but not necessarily limited to access site bleeding, bruising, pain, swelling or vascular injury that may require emergency vascular surgery, blood transfusion, or thrombin injection. Also discussed the possibility of stroke, myocardial infarction, arrhythmia which may require electrocardioversion, and the possibility of dye reaction that would require medical therapy. Also discussed the possibility of coronary artery injury, ruptured, closure or perforation that may require emergency bypass surgery. We also discussed the possibility of from a major complication. They voice understanding and agree to proceed. We will carry that out sometime today.
--- NOTE | 2017-01-18 07:43 | History and Physical Update ---
Sedation H&P Update - History and Physical H&P was reviewed, the patient examined and there: are no changes in the patients condition since last H&P was completed. - Dictation Physical: refer to H&P completed by admitting physician - Physical Exam Heart: regular rate and rhythm Lung: clear to auscultation Abdomen: within normal limits Vitals: within normal limits History and Physical Changes: none - Sedation Plan for Sedation: moderate Patient Consent: Procedure disscussed with patient and patinet has consented., Risks and benefits were discussed with patient,including infection,, bleeding, injury to surrounding structures, seizure, temporary nerve, Patient understands and accepts potential risks/benefits and agrees to, proceed. ASA Class: III Airway Assessment: Class III: Soft palate, base of uvula visible
--- NOTE | 2017-01-18 07:44 | Family Practice Progress Note ---
Family Practice - PN: Subj Interval history: Patient states he is doing well is not having anymore chest pain. Patient scheduled for left heart catheterization today and he is ready to proceed. Hematocrit is 27.4 this morning. He had a heme negative stool. Exam (Progress Note) - Constitutional Vitals: Period Temp Pulse Resp BP Sys/Franco Pulse Ox Last 24 Hr 96.9 F-98.6 F 49-62 16-24 135-147/55-61 96-100 Exam: Objectively well-developed black male no acute distress. He is lying flat in bed and has no dyspnea. He is able to give an excellent history. Cardiovascular: Heart rate regular I hear no murmurs or gallops. Respiratory: Lungs clear to auscultation bilaterally. Abdomen: There is no localized, rebound or guarding tenderness. Extremities: There is no calf swelling or tenderness Results - Labs CBC & BMP: 01/18/17 03:28 01/18/17 03:28 Lab Results: I have reviewed the past 24 hour labs Assessment and Plan (1) Ischemic cardiomyopathy Status: Chronic Assessment and plan: 01/16/2017: Chest x-ray showed mild evidence of congestive heart failure. He certainly not symptomatic for that at this point in time 01/17/2017: Patient is clinically improved. Patient scheduled for left heart cath in the morning. 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 Alex Craft. I will ask him to see him as well. Patient's troponin is very slightly elevated which could be related to his cardiomyopathy. 01/17/2017: Patient for left heart cath in the morning. Current Visit: Yes (3) Iron deficiency anemia Status: Acute Assessment and plan: 01/17/2017: Patient's stool was negative for occult blood. Will restart iron supplement 01/18/2017: Iron supplementation restarted. Current Visit: Yes
[2017-01-18] MEDS ORDERED: SODIUM CHLORIDE 0.9% 1,000 ML IV SCH ×2 (08:00→11:30)
[2017-01-18] MEDS ORDERED: diphenhydrAMINE CAP 50 MG CAPSULE ONE (08:34)
[2017-01-18] MEDS ORDERED: DIAZEPAM 5 MG TABLET ONE (08:34)
[2017-01-18] MEDS: ASPIRIN EC 81 MG TABLET PO SCH (10:03)
[2017-01-18] MEDS: AMIODARONE 200 MG TABLET PO SCH ×2 (10:04→21:06)
[2017-01-18] MEDS: PANTOPRAZOLE 40 MG TABLET PO SCH (10:04)
[2017-01-18] MEDS: SIMVASTATIN 40 MG TABLET PO SCH (10:04)
[2017-01-18] MEDS: FERROUS SULFATE 325 MG TABLET PO SCH ×2 (10:04→21:06)
[2017-01-18] MEDS: CARVEDILOL 6.25 MG TABLET PO SCH ×2 (10:07→21:07)
[2017-01-18] MEDS: LOSARTAN 50 MG TABLET PO SCH ×2 (10:07→21:06)
[2017-01-18] MEDS: DOCUSATE SODIUM 100 MG CAPSULE PO SCH ×2 (10:07→21:06)
[2017-01-18] MEDS: SIMETHICONE CHEW 125 MG TABLET PO SCH ×4 (10:08→21:06)
[2017-01-18] MEDS: POTASSIUM CHLORIDE 20 MEQ TABLET PO SCH (10:08)
[2017-01-18] MEDS: FUROSEMIDE 40 MG/4 ML VIAL IV SCH ×2 (10:26→15:24)
[2017-01-18] MEDS ORDERED: diphenhydrAMINE CAP 25 MG CAPSULE PO ONE (10:30)
[2017-01-18] MEDS ORDERED: MIDAZOLAM 2 MG/2 ML VIAL ONE (10:30)
[2017-01-18] MEDS ORDERED: fentaNYL 100 MCG/2 ML VIAL ONE (10:30)
[2017-01-18] MEDS ORDERED: DIAZEPAM 5 MG TABLET PO ONE (10:30)
[2017-01-18] MEDS ORDERED: LIDOCAINE 1% 20 ML VIAL ONE (10:30)
--- NOTE | 2017-01-18 11:37 | Operative Note ---
Date of procedure: 01/18/17 Procedure Preformed: Left heart catheterization with RESENDIZ angiogram and SVG angiograms. Surgeon / Physician: Prabhjot Garvin Post-op diagnosis: same Findings: Coronary grafts are widely patent. Specimens: none sent Estimated blood loss: minimal Condition: stable Anesthesia: local, conscious sedation Disposition: floor
--- NOTE | 2017-01-18 11:56 | Cardiac Catheterization ---
Date of Procedure:: 01/18/17 Pre-op Diagnosis: Exertional chest pain shortness of breath. Post-op diagnosis: same Procedure: LEFT HEART CATHERIZATION History: 81-year-old man he has known cortices post bypass surgery previously. Patient now exertion addition exertion and some chest discomfort. Pre-Op diagnosis: Coronary disease with chest discomfort distant exertion. Postoperative diagnosis: Patient's grafts are widely patent and no changes when compared to his prior cart catheterization of 2013. Procedures: 1. Left heart catheterization. 2. Left ventricular angiogram. 3. Selective left and right coronary angiograms. 4. Right common femoral artery angiogram with Angio-Seal hemostasis. 5. Left internal mammary artery angiogram with runoff into the LAD. 6. SVG angiograms 2. One graft to OM branch, one graft to distal RCA. Equipment: 6 Malaysian arterial sheath, 6 Malaysian diagnostic pigtail catheter, JL4 and JR4 diagnostic catheters. A in MPA catheter for the SVG to the RCA, and a RESENDIZ catheter for the RESENDIZ graft. A 6 Malaysian Angio-Seal hemostatic device. Medications: Preoperative Benadryl and Valium given by mouth. Lidocaine 1% local anesthesia 9 mls administered by myself. Intraprocedure patient received Versed 1 mgs IVP, fentanyl 50 mcg IVP. Complications: None immediate. Contrast: Omnipaque 212 milliliters. Description of procedure: After informed consent the patient was given preoperative medications and brought to the catheterization laboratory where their right groin was prepped and draped in usual fashion. IV sedation was then obtained after which local anesthesia was administered at the right groin over the right common femoral artery. Using modified Seldinger technique the right common femoral artery was cannulated with 6 Malaysian arterial sheath placed. The pigtail catheter was then advanced through the sheath in a retrograde approach through the aorta to the aortic valve. The catheter was advanced through the aortic valve where left ventricular pressures were measured. The catheter was then pulled back into the aortic root and pressures measured. The catheter was then advanced across the aortic valve into the left ventricle where left ventricular angiogram was obtained in the right anterior oblique view. The pigtail catheter was then removed. The JL4 diagnostic coronary catheter was then advanced through the sheath in a retrograde approach and used to cannulate the left coronary artery of which angiograms were obtained in multiple projections. This catheter was then removed. The JR 4 diagnostic coronary catheter was then advanced retrograde through the aorta and used to cannulate the right coronary artery of which angiograms were obtained in multiple projections. This right coronary catheter was used to obtain selective left internal mammary artery angiogram. Angiograms were then reviewed. The right coronary catheter was pulled back into the sheath where a right common femoral artery angiogram was obtained with Angio-Seal hemostasis then obtained of this vessel. There were no immediate complications. Hemodynamic data: LV 158/8 , EDP 22 ; AO root 156/50 , mean 86 . Left ventricular angiogram: The left ventricle is probably mildly dilated. The apex is severely hypokinetic. Ejection fraction from the POSADA view of 25%. There is no significant mitral regurgitation demonstrated. The aortic valve is probably a tricuspid structure. There is no gross aortic abnormalities. The right common for artery is noted to be patent with sheath inserted in this on LV gram runoff. Left main coronary artery angiogram: This is a medium caliber vessel that bifurcates to LAD and circumflex arteries. There is no stenosis. Left anterior descending artery angiogram: The LAD is a medium caliber vessel proximally calcification mid vessel. The first diagonal is a probably small vessel but long. He has multiple branches. His it mashes senna septal international editorial producer off itself with multiple other branches small branches. This vessel has a 95% proximal ostial stenosis with a poststenotic aneurysmal dilation. On review of old catheterization films from July 2014 there is no change in this anatomy. The LAD is 99% stenosis beyond the first diagonal branch and the LAD is seen by way of RESENDIZ graft angiogram. There is no stenosis in these areas. Circumflex artery angiogram: Circumflex artery is a medium caliber vessel with couple small obtuse marginal branches proximally. Third obtuse marginal branch is medium caliber vessel that is best seen by way of the SVG angiogram. There is good runoff into this vessel from the vein graft. Beyond the vein graft anastomosis the vessel is widely patent. Right coronary artery angiogram: The RCA is totally occluded at its ostium. The distal RCA is seen by way of SVG graft angiogram with good runoff. The PDA is a medium caliber vessel with small posterior lateral branches. There is good antegrade flow in the distal RCA beyond the graft anastomosis. There is also generally good retrograde flow into the middle and proximal RCA. Left internal mammary artery graft to LAD angiogram: This graft is widely patent with the distal anastomosis intact. There is good runoff into the lower [place]oux vessel. SVG to OM angiogram: This graft is widely patent with proximal and distal anastomosis is intact. There is good runoff into the lower [place]oux vessel. SVG to RCA angiogram: This graft is widely patent with the proximal and distal anastomoses intact. There is good runoff into the lower [place]oux vessel. Right common femoral artery angiogram: Right common for artery is intact with some calcification. Successful Angio-Seal hemostasis. Impression: 1. Left ventricle is probably mildly dilated with severe LV dysfunction with an ejection fraction the neighborhood of 25% at best. 2. LVEDP is mildly elevated at 20 minutes mercury. 3. The aortic valve is probably tricuspid structure and there is no significant gradient noted. 4. There is no severe mitral regurgitation demonstrated. 5. The RCA is totally occluded proximally at its ostium. The distal and as well as mid vessel seen by way of the cyst vein graft. There is good runoff into these portions the RCA. 6. SVG to RCA is widely patent. 7. Left main coronary is patent. 8. Circumflex artery with obtuse marginal branch having high-grade stenosis. This obtuse marginal branch is seen well by SVG. 9. SVG to OM is widely patent. 10. LAD with 99% mid stenosis. The mid and distal LAD is seen best by RESENDIZ graft. First diagonal has a high-grade 95% proximal ostial stenosis but this is an old finding. 11. RESENDIZ graft to the LAD is widely patent. 12. Right common for artery was calcification but successful Angio-Seal hemostasis. Discussion: We'll monitor this patient post cart catheterization. Certainly has a severe cardiomyopathy that is may need further treatment. Risk factor modification should be continued. Risk factor modification is indicated. Implants: None Anesthesia: local, moderate conscious sedation Surgeon / Physician: Prabhjot Garvin Log Processor Operator: none Estimated blood loss: minimal Specimens: none sent Condition: stable Disposition: floor - Medications / Follow-up
[2017-01-18] MEDS: ENOXAPARIN 40 MG/0.4 ML SYRINGE SUBCUT SCH (15:23)
[2017-01-19] MEDS: ALBUTEROL/IPRATROPIUM 3 ML NEB RESP TX SCH ×2 (02:36→07:14)
--- NOTE | 2017-01-19 05:34 | Discharge Summary ---
Hospital Course - Hospital Course Hospital Course: Patient is a 81-year-old gentleman that was admitted with chest pain. Patient has a history of coronary artery disease status post CABG in 2003. Patient also has history of ischemic cardiomyopathy but is functioning quite well with an EF of 25%. Patient was seen by cardiology and underwent left heart cath by Dr. Kenny Garvin on 01/18/2017. Catheterization revealed no acute findings compared to the study in 2013. All of his bypasses were patent and open. Patient had no further chest pain and it is felt he can be discharged today if cardiology agrees. Diagnosis - Discharge Diagnosis (1) Ischemic cardiomyopathy Status: Chronic (2) Chest pain Status: Resolved (3) Iron deficiency anemia Status: Acute Specialty Discharge - Follow Up or Referrals Follow up with: Noe Jaeger MD [Physician] - 2 Weeks Discharge Plan - Discharge Data Disposition: Disch To Home/Self Care Condition at Discharge: Stable Discharge Diet: advance to your usual diet Activity: resume usual activities as tolerated Hygiene: no restrictions Weight Bearing at Discharge: full weight bearing Driving: no restrictions - Discharge Medications New Ferrous Sulfate Tab [Feosol Original Tab] 325 mg PO BID #60 tablet Potassium Chloride Cap/Tab [K Dur] 20 meq PO DAILY #30 tablet Nitroglycerin Sl Tab [Nitrostat] 0.4 mg SL Q5M PRN #25 tablet PRN Reason: Chest Pain Continue Simvastatin 1 tablet PO DAILY Losartan [Cozaar] 50 mg PO DAILY Furosemide 1 tablet PO DAILY Carvedilol 1 tablet PO BID Amiodarone HCl 1 tablet PO BID Aspirin [Ecotrin] 81 mg PO DAILY - Follow Up or Referral Follow Up: Noe Jaeger MD [Physician] - 2 Weeks - Forms/Instructions Instructions: Coronary Artery Disease (GEN), Left Heart Catheterization (DC), Heart Healthy Diet (GEN) Exam - Constitutional Vitals: Period Temp Pulse Resp BP Sys/Franco Pulse Ox Last 24 Hr 96.9 F-98.1 F 43-60 16-20 136-161/58-87 92-100 Exam: Objectively well-developed black male no acute distress. He is lying flat in bed and has no dyspnea. He is sleeping soundly when I came by to see him. Cardiovascular: Heart rate regular I hear no murmurs or gallops. Respiratory: Lungs clear to auscultation bilaterally. Abdomen: There is no localized, rebound or guarding tenderness. Extremities: There is no calf swelling or tenderness Discharge Results Procedures and tests throughout hospitalization: Pending Orders 01/16/17 20:35 Occult Blood, Stool Routine 01/18/17 07:50 CL heart Routine Left heart catheterization on 01/18/2017 results are noted. DS: Provider Date of admission: 01/16/17 09:16 Primary care physician: . No PCP Attending physician on admission: Noe Jaeger MD Consults: 01/16/17 13:28 Consult to Case Mgmt/Social Srvs [CONS] Routine Reason for Case Mgmt/Social Srvs: Discharge Planning 01/16/17 13:35 Consult to Pharmacy [CONS] Routine Reason for Pharmacy Consult: Adjust Meds Renal Funct 01/16/17 13:43 Consult to Pastoral Services [CONS] Routine Comment: Pastoral Screen: Request Metallurgical Engineer Visit Pastoral Screen Source of Request: Family 01/16/17 15:52 Consult to Physician [CONS] Routine Comment: Consulting Provider: Cardiology - [facility] 01/18/17 11:29 Consult to Cardiac Rehabilitation [CONS] Routine Reason for Cardiac Rehabilitation: Risk Factor Modification Discharging clinician: Noe Jaeger MD Expected date of discharge: 01/19/17
[2017-01-19 07:54] VITALS: BP 143/74
[2017-01-19] MEDS: ASPIRIN EC 81 MG TABLET PO SCH (08:41)
[2017-01-19] MEDS: FERROUS SULFATE 325 MG TABLET PO SCH (08:41)
[2017-01-19] MEDS: PANTOPRAZOLE 40 MG TABLET PO SCH (08:42)
[2017-01-19] MEDS: SIMVASTATIN 40 MG TABLET PO SCH (08:42)
[2017-01-19] MEDS: FUROSEMIDE 40 MG/4 ML VIAL IV SCH (08:42)
[2017-01-19] MEDS: DOCUSATE SODIUM 100 MG CAPSULE PO SCH (08:42)
[2017-01-19] MEDS: SIMETHICONE CHEW 125 MG TABLET PO SCH (08:42)
[2017-01-19] MEDS: AMIODARONE 200 MG TABLET PO SCH (08:42)
[2017-01-19] MEDS: LOSARTAN 50 MG TABLET PO SCH (08:42)
[2017-01-19] MEDS: POTASSIUM CHLORIDE 20 MEQ TABLET PO SCH (08:42)
[2017-01-19] MEDS: CARVEDILOL 6.25 MG TABLET PO SCH (08:43)
--- NOTE | 2017-01-19 08:50 | Cardiology Progress Note ---
Cardiology - PN: Subj Interval history: Cardiology note Cath findings reviewed with patient and family. All 3 bypass grafts from 2003 remain patent. Ischemic cardiomyopathy. Ejection fraction 25%. Admission weight 83.9 kg. Weight today 76.8 kg. He is breathing much better and is ready for discharge. Telemetry has been benign. Blood pressure 136/82. Lab data today Sodium 144 potassium 4.1 chloride 102 CO2 30 BUN 16 creatinine 1.20 Plan Home today. Losartan has been increased to 50 mg twice daily. Carvedilol has been increased to 12.5 mg twice daily. Lasix has been increased to 40 mg at 7 AM and 2 PM daily. Office visit with EKG with me in 1 week. Exam (Progress Note) - Constitutional Vitals: Period Temp Pulse Resp BP Sys/Franco Pulse Ox Last 24 Hr 96.9 F-99.6 F 43-61 16-20 125-161/58-87 95-100 Result/EKG - Labs CBC & BMP: 01/18/17 03:28 01/18/17 03:28 Specialty Discharge - Follow Up or Referrals Follow up with: Noe Jaeger MD [Physician] - 2 Weeks
== END 2017-01-19 10:30 | disposition home or self-care (01) ==
LOC: N.ED 07:17 → N.EDINP 07:17 → N.ICU 13:21 → N.TELES 01-17 15:26
PROVIDERS: ADMIT Family Medicine; ATTEND Family Medicine